=== PATIENT | female | born 1970 | race Caucasian/White ===

== ENCOUNTER → 2018-10-19 | Outpatient (CLI) | payer BC | LOC: MC.RAD 15:44 | DX: Z12.31 Encounter for screening mammogram for malignant neoplasm of breast (principal) ==

== ENCOUNTER → 2019-11-26 | Outpatient (CLI) | payer BC | LOC: MC.RAD 10-25 15:45 | DX: Z12.31 Encounter for screening mammogram for malignant neoplasm of breast (principal) ==

== ENCOUNTER → 2021-02-10 | Outpatient (CLI) | payer OTHER | LOC: MC.RAD 15:30 | DX: Z12.31 Encounter for screening mammogram for malignant neoplasm of breast (principal); Z01.419 Encounter for gynecological examination (general) (routine) without abnormal findings; N64.89 Other specified disorders of breast ==

== ENCOUNTER → 2021-02-17 | Outpatient (CLI) | payer OTHER | LOC: MC.RAD 15:00 | DX: Z01.419 Encounter for gynecological examination (general) (routine) without abnormal findings (principal); N64.89 Other specified disorders of breast ==